=== PATIENT | male | born 1965 | race Caucasian/White ===

== ENCOUNTER 2018-08-25 06:43 | Emergency (ER) | payer OTHER ==
[2018-08-25 07:01] VITALS: BMI 29.8
--- NOTE | 2018-08-25 07:30 | PDOC ---
History of Present Illness - General Chief Complaint: Pain Stated Complaint: ABDOMINAL PAIN Time Seen by Provider: 08/25/18 07:30 History Source: Patient Exam Limitations: No Limitations - History of Present Illness Initial Comments: 08/25/18 07:41 52 year old male with no PMH presented to ED for RLQ pain associated with right testicular pain, nausea since 0400 today. Pt admitted to one episode of vomiting this morning. Pt denied fever, chills, diarrhea, constipation, chest pain, shortness of breath. 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 Allergies: NKDA Past History - Past Medical History Allergies/Adverse Reactions: Allergies Allergy/AdvReac Type Severity Reaction Status Date / Time No Known Allergies Allergy Verified 08/25/18 07:01 Home Medications: Ambulatory Orders Ibuprofen 800 mg PO TID #9 tablet 08/25/18 Levofloxacin [Levaquin] 500 mg PO DAILY #9 tablet 08/25/18 COPD: No - Surgical History Abdominal Surgery: Yes (hernia) - Suicide/Smoking/Psychosocial Hx Smoking History: Never smoked Review of Systems - Review of Systems Able to Perform ROS?: Yes Comments:: 08/25/18 07:45 General: denied fever, chills, night sweats, generalized weakness. HEENT: denied sore throat, rhinorrhea, ear pain. Heart: denied chest pain, palpitations, syncope, lower extremity swelling, diaphoresis. Respiratory: denied shortness of breath, cough, sputum production, hemoptysis. Abdomen: admitted to abdominal pain, nausea, vomiting. denied diarrhea, constipation, blood in stool. : admitted to testicular pain. denied dysuria, increased urinary frequency, hematuria, urinary incontinence, flank pain. Back: denied back pain. Musculoskeletal: denied joint pain, muscle pain, joint swelling. Neurological: denied headache, dizziness, numbness, tingling, weakness. Skin: denied rash, laceration, abrasion. *Physical Exam - Vital Signs Last Vital Signs Temp Pulse Resp BP Pulse Ox 97 F L 94 H 18 154/96 98 08/25/18 06:58 08/25/18 06:58 08/25/18 06:58 08/25/18 06:58 08/25/18 06:58 - Physical Exam Comments: 08/25/18 08:09 Constitutional: Well-nourished, Well-developed, appearing stated age. HEENT: head is normocephalic, atraumatic. EOMI. PERRLA. Neck: supple. Full ROM. Heart: regular rhythm. no murmurs, rubs or gallops. Lungs: clear to auscultation bilaterally. no crackles, rhonchi or wheezing. no stridor. Abdomen: soft, flat, tenderness to palpation of RLQ. rovsings negative. obturator negative. normal bowel sounds. no rebound, guarding, masses. Genital: bilateral testicles in vertical lie. tenderness to palpation of right testicle. Extremities: Peripheral pulses intact. No lower extremity edema. Neurological: CN 2-12 grossly intact. Moves all four extremities. Psych: awake, alert, oriented x3. Follows commands. Answers questions appropriately. Moderate Sedation - Procedure Monitoring Vital Signs: Procedure Monitoring Vital Signs Temperature 97 F L 08/25/18 06:58 Pulse Rate 94 H 08/25/18 06:58 Respiratory Rate 18 08/25/18 06:58 Blood Pressure 154/96 08/25/18 06:58 O2 Sat by Pulse Oximetry (%) 98 08/25/18 06:58 ED Treatment Course - LABORATORY CBC & Chemistry Diagram: 08/25/18 08:00 08/25/18 08:00 Medical Decision Making - Medical Decision Making 08/25/18 08:11 52 year old male with above PMH presented to ED for acute RLQ pain associated with nausea, vomiting, right testicular pain. Initial Vital Signs Temp Pulse Resp BP Pulse Ox 97 F L 94 H 18 154/96 98 08/25/18 06:58 08/25/18 06:58 08/25/18 06:58 08/25/18 06:58 08/25/18 06:58 Temperature mildly low. Borderline tachycardia. No tachypnea on room air. Mild hypertension. No hypoxia on room air. Labs ordered: CBC, CMP, lipase, lactate, coags, T/Sx2 Medications ordered: toradol, zofran Imaging ordered: testicular ultrasound, spiral CT abdomen 08/25/18 08:26 Pt reported improvement of pain and nausea. CBC WBC 10.8 K/mm3 (4.0-10.0) H 08/25/18 08:00 RBC 5.20 M/mm3 (4.00-5.60) 08/25/18 08:00 Hgb 15.8 GM/dL (11.7-16.9) 08/25/18 08:00 Hct 48.8 % (35.4-49) 08/25/18 08:00 MCV 93.8 fl (80-96) 08/25/18 08:00 MCH 30.5 pg (25.7-33.7) 08/25/18 08:00 MCHC 32.5 g/dl (32.0-35.9) 08/25/18 08:00 RDW 13.2 % (11.9-15.9) 08/25/18 08:00 Plt Count 244 K/MM3 (134-434) 08/25/18 08:00 MPV 7.8 fl (7.5-11.1) 08/25/18 08:00 Absolute Neuts (auto) 9.5 K/mm3 (1.5-8.0) H 08/25/18 08:00 Neutrophils % 88.0 % (42.8-82.8) H 08/25/18 08:00 Lymphocytes % 6.3 % (8-40) L 08/25/18 08:00 Monocytes % 5.1 % (3.8-10.2) 08/25/18 08:00 Eosinophils % 0.2 % (0-4.5) 08/25/18 08:00 Basophils % 0.4 % (0-2.0) 08/25/18 08:00 Nucleated RBC % 0 % (0-0) 08/25/18 08:00 Mild leukocytosis with left shift. - Inflammatory vs Infectious process 08/25/18 09:18 CMP Sodium 143 mmol/L (136-145) 08/25/18 08:00 Potassium 4.2 mmol/L (3.5-5.1) 08/25/18 08:00 Chloride 109 mmol/L (98-107) H 08/25/18 08:00 Carbon Dioxide 28 mmol/L (21-32) 08/25/18 08:00 Anion Gap 6 MMOL/L (8-16) L 08/25/18 08:00 BUN 26 mg/dL (7-18) H 08/25/18 08:00 Creatinine 1.4 mg/dL (0.55-1.3) H 08/25/18 08:00 Creat Clearance w eGFR 53.01 (>60) 08/25/18 08:00 Random Glucose 144 mg/dL (74-106) H 08/25/18 08:00 Lactic Acid 1.4 mmol/L (0.4-2.0) 08/25/18 08:15 Calcium 9.1 mg/dL (8.5-10.1) 08/25/18 08:00 Total Bilirubin 0.5 mg/dL (0.2-1) 08/25/18 08:00 AST 21 U/L (15-37) 08/25/18 08:00 ALT 42 U/L (13-61) 08/25/18 08:00 Alkaline Phosphatase 62 U/L (45-117) 08/25/18 08:00 Total Protein 7.3 g/dl (6.4-8.2) 08/25/18 08:00 Albumin 3.6 g/dl (3.4-5.0) 08/25/18 08:00 Lipase 88 U/L (73-393) 08/25/18 08:00 Normal electrolytes. BUN/Cr<20 - Mild LUIS - IV fluids ordered - No prior to compare Normal LFTs. Normal lipase. Normal lactate suggests against ischemia of the testicle. Testicles were in verticle lie on examination. Right testicle tender to palpation. - Pending scrotal US Urine Test Results Urine Color Yellow 08/25/18 07:55 Urine Appearance Clear 08/25/18 07:55 Urine pH 5.0 (5.0-8.0) 08/25/18 07:55 Ur Specific [place] 1.026 (1.010-1.035) 08/25/18 07:55 Urine Protein Negative (NEGATIVE) 08/25/18 07:55 Urine Glucose (UA) Negative (NEGATIVE) 08/25/18 07:55 Urine Ketones Negative (NEGATIVE) 08/25/18 07:55 Urine Blood Negative (NEGATIVE) 08/25/18 07:55 Urine Nitrite Negative (NEGATIVE) 08/25/18 07:55 Urine Bilirubin Negative (<2.0 mg/dL) 08/25/18 07:55 Ur Leukocyte Esterase Negative (NEGATIVE) 08/25/18 07:55 UA negative for UTI. No blood in urine. CT spiral: 2 mm passed stone in urinary bladder. right sided hydro with perinephric stranding. 08/25/18 11:13 Pt reported continued improvement of pain. Pending US. 08/25/18 12:14 Scrotal US report: right sided hydrocele. right sided epididymitis. bilateral cysts. - Pt informed of results and given copy of report - Pt informed to follow up with PCP - Levaquin 500 mg first dose ordered Appendicitis unlikely, RLQ tenderness, but negative rovsings/obturator/rebound, no continued N/V/D, no fever, pain improved with toradol, pt appears well. Diagnoses: 1) Epididymitis 2) Abdominal pain 3) Passed nephrolithiasis New Medications: 1) Ibuprofen for pain 2) Levaquin for epididymitis Pt reported he is feeling better, would like to go home. Pt provided with copies of lab work, CT report, US report. Results were thoroughly discussed and pt was informed to follow up with PCP. Pt expressed understanding and agreed with the plan for care. Pt discharged. *DC/Admit/Observation/Transfer Diagnosis at time of Disposition: Nephrolithiasis, Epididymitis, Abdominal pain - Discharge Dispostion Disposition: HOME Condition at time of disposition: Improved Decision to Admit order: No - Prescriptions Prescriptions: Ibuprofen 800 mg PO TID #9 tablet Levofloxacin [Levaquin] 500 mg PO DAILY #9 tablet - Referrals Referrals: Abhishek Bautista [Primary Care Provider] - - Patient Instructions Printed Discharge Instructions: DI for Kidney Stones, DI for Epididymitis Additional Instructions: DOCTOR'S INSTRUCTIONS: Lab testing: - Mildly decreased kidney function, likely due to blockage of urine flow from kidney stone (that is now passed). - Increased white blood cell count, indicator of inflammation or infection. Imaging: - CT: 2 mm stone in the urinary bladder - US: right sided epididymitis, right sided hydrocele. incidental small cysts on both sides. Medications: - Ibuprofen 800 mg every 8 hours. Prescription sent to your pharmacy. - Levaquin (antibiotic) 500 mg every 24 hours. Prescription sent to pharmacy. - Drink lots of clear fluids, like water, to increase hydration Follow up: - Primary Care Doctor in 1-2 days, bring the paperwork given to you today to your appointment. Return to Emergency Department for: - Increasing pain, blood in urine, burning with urination, inability to urinate , fever, or any other new, worsening or concerning symptoms. - Post Discharge Activity Forms/Work/School Notes: Back to Work
[2018-08-25] MEDS ORDERED: ONDANSETRON 4 MG/2 ML VIAL IVPUSH ONE (07:43)
[2018-08-25] MEDS ORDERED: KETOROLAC TROMETHAMINE 30 MG/1 ML VIAL IVPUSH ONE (07:43)
[2018-08-25] MEDS ORDERED: KETOROLAC TROMETHAMINE 30 MG/1 ML VIAL ONE (07:57)
[2018-08-25] MEDS ORDERED: ONDANSETRON 4 MG/2 ML VIAL ONE (07:57)
[2018-08-25 08:18] LABS: BASO % 0.4 % (0-2.0); EOS % 0.2 % (0-4.5); HEMATOCRIT 48.8 % (35.4-49); HEMOGLOBIN 15.8 GM/dL (11.7-16.9); LYMPH % 6.3 % (8-40); MCH 30.5 pg (25.7-33.7); MCHC 32.5 g/dl (32.0-35.9); MEAN CELL VOLUME 93.8 fl (80-96); MEAN PLT VOLUME 7.8 fl (7.5-11.1); MONO % 5.1 % (3.8-10.2); PLATELET COUNT 244 K/MM3 (134-434); RDW 13.2 % (11.9-15.9); WHITE BLOOD COUNT 10.8 K/mm3 (4.0-10.0)
[2018-08-25 08:19] LABS: URINE APPEARANCE CLEAR; URINE BILIRUBIN NEGATIVE (<2.0 mg/dL); URINE COLOR YELLOW; URINE GLUCOSE (UA) NEGATIVE (NEGATIVE); URINE KETONE NEGATIVE (NEGATIVE); URINE LEUK ESTERASE NEGATIVE (NEGATIVE); URINE NITRITE NEGATIVE (NEGATIVE); URINE PROTEIN NEGATIVE (NEGATIVE); URINE UROBILINOGEN NEGATIVE mg/dL (0.2-1.0)
[2018-08-25 08:27] LABS: ALBUMIN 3.6 g/dl (3.4-5.0); ALK PHOS 62 U/L (45-117); ANION GAP 6 MMOL/L (8-16); BILIRUBIN,TOTAL 0.5 mg/dL (0.2-1); BLOOD UREA NITROGEN 26 mg/dL (7-18); CALCIUM 9.1 mg/dL (8.5-10.1); CHLORIDE 109 mmol/L (98-107); CO2 28 mmol/L (21-32); CREATININE 1.4 mg/dL (0.55-1.3); GLUCOSE,RANDOM 144 mg/dL (74-106); LIPASE 88 U/L (73-393); POTASSIUM 4.2 mmol/L (3.5-5.1); SGOT/AST 21 U/L (15-37); SGPT/ALT 42 U/L (13-61); SODIUM 143 mmol/L (136-145); TOT PROT 7.3 g/dl (6.4-8.2)
[2018-08-25 08:29] LABS: INR 1.11 (0.83-1.09); PROTHROMBIN TIME (PATIENT) 13.1 SEC (9.7-13.0)
[2018-08-25 08:31] LABS: ACTIVATED PTT 22.7 SECONDS (25.2-36.5)
--- NOTE | 2018-08-25 08:39 | PDOC ---
Attending Attestation - HPI HPI: 08/25/18 09:58 The patient is a 52 year old male, with no significant past medical history, who presents to the emergency department with, right lower quadrant pain radiating to the right testicle with associated nausea. 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 He denies any recent fevers, chills, headache or dizziness. He denies any recent diarrhea or constipation. He denies any recent chest pain or shortness of breath. He denies any recent dysuria, frequency, urgency or hematuria. Allergies: NKDA Primary Care Physician: Dr. Bauitsta <Cary Rincon - Last Filed: 08/25/18 09:58> - Resident Resident Name: Cathy Cm - ED Attending Attestation I have performed the following: I have examined & evaluated the patient, The case was reviewed & discussed with the resident, I agree w/resident's findings & plan, Exceptions are as noted - Physicial Exam PE: GENERAL: Awake, alert, and fully oriented, in no acute distress HEAD: No signs of trauma EYES: PERRLA, EOMI, sclera anicteric, conjunctiva clear ENT: Auricles normal inspection, hearing grossly normal, nares patent, oropharynx clear without exudates. Moist mucosa NECK: Normal ROM, supple, no lymphadenopathy, JVD, or masses LUNGS: Breath sounds equal, clear to auscultation bilaterally. No wheezes, and no crackles HEART: Regular rate and rhythm, normal S1 and S2, no murmurs, rubs or gallops ABDOMEN: Soft, +RLQ tenderness, +R CVAT, normoactive bowel sounds. No guarding , no rebound. No masses EXTREMITIES: Normal range of motion, no edema. No clubbing or cyanosis. No cords, erythema, or tenderness NEUROLOGICAL: Cranial nerves II through XII grossly intact. Normal speech, normal gait. Motor and sensation intact SKIN: Warm, Dry, normal turgor, no rashes or lesions noted. - Medical Decision Making Pt with abrupt onset R flank pain radiating to RLQ and into testicle. Found to have recently passed stone (which makes sense as patient was comfortable shortly after arriving in ED). Also with suspected epididymitis, which we will treat with abx. Stable for DC home. <Keren Collins - Last Filed: 08/25/18 13:33> Attestations - Attestations 08/25/18 09:58 Documentation prepared by Cary Rincon, acting as medical bill processor for Keren Collins MD. <Cary Rincon - Last Filed: 08/25/18 09:58>
[2018-08-25] MEDS ORDERED: SODIUM CHLORIDE 1,000 ML IV STA (09:19)
[2018-08-25 12:06] VITALS: BP 142/72; PULSE 93; TEMP 97.8
== END 2018-08-25 12:37 | disposition home or self-care (01) ==
LOC: JER 06:43
PROC: 3E0337Z Introduction of Electrolytic and Water Balance Substance into Peripheral Vein, Percutaneous Approach (ICD-10-PCS; principal; 2018-08-25)
PROC: 3E033GC Introduction of Other Therapeutic Substance into Peripheral Vein, Percutaneous Approach (ICD-10-PCS; 2018-08-25)
PROC: 3E0333Z Introduction of Anti-inflammatory into Peripheral Vein, Percutaneous Approach (ICD-10-PCS; 2018-08-25)
DX: N13.2 Hydronephrosis with renal and ureteral calculous obstruction (principal); N45.1 Epididymitis; N43.3 Hydrocele, unspecified
CPT/HCPCS: 36415; 74176; 76870-TC; 80053; 81003; 83605; 83690; 85025; 85610; 85730; 86850; 86900; 86901; 87086; 99283-25; J7030